=== PATIENT | female | born 1975 | race Caucasian/White ===

== ENCOUNTER → 2019-07-22 07:06 | Outpatient (CLI) | payer BC, SELFPAY ==
--- NOTE | ~2019-07-22 | MM_ITS ---
EXAMINATION: MM screening [facility] BI w majo HISTORY: Screening mammogram TECHNIQUE: Craniocaudal and mediolateral oblique 3-D tomosynthesis images were obtained and synthetic 2-D images were generated. CAD analysis was submitted and interpreted. COMPARISON: 03/26/2018 BREAST PARENCHYMAL COMPOSITION: There are scattered areas of fibroglandular density. FINDINGS: There is no evidence of suspicious mass, calcification, or architectural distortion to sugg est malignancy in either breast. There has been no suspicious interval change. IMPRESSION: 1. No mammographic evidence of malignancy. 2. Recommend routine screening mammography in one year. BI-RADS Category 1: Negative Reviewed, dictated and finalized at location A. [employer]
== END ==
PROVIDERS: Visit Provider Obstetrics & Gynecology
DX: Z12.31 Encounter for screening mammogram for malignant neoplasm of breast (principal)
CPT/HCPCS: 77063; 77067

== ENCOUNTER 2021-12-09 02:29 | Emergency (ER) | payer BC, SELFPAY ==
[2021-12-09] VITALS (27 sets, daily range): BP systolic 94–139; BP diastolic 57–100; PULSE 43–90; RESP 16–21; TEMP 36.6; O2SAT 93–100
--- NOTE | ~2021-12-09 | CT_ITS ---
EXAMINATION: CT abdomen pelvis wo con DATE: 12/09/2021 03:18 INDICATION: Right flank pain. Nausea and vomiting. TECHNIQUE: Computed tomography (CT) of the abdomen and pelvis was performed without intravenous contr ast. Automated exposure control and iterative reconstruction technique were employed. The dose-length product was 1026.56 mGy-cm. COMPARISON: None. FINDINGS: The visualized portions of the lung bases demonstrate mild atelectasis. No pleural effusion . The heart size is normal. No pericardial effusion. The liver and spleen are normal. The gallbladder is distended with adjacent fat stranding, consistent with acute cholecystitis. The pancreas, adrenal glands, and kidneys are normal. There is no urolithiasis. There are no dilated loops of bowel. The a ppendix is normal. There are no pathologically enlarged lymph nodes. There is no free intraperitoneal fluid. There is mild thoracolumbar spondylosis. IMPRESSION: 1. Acute cholecystitis. Reviewed, dictated and finalized at location A. IMPRESSION: 1. Acute cholecystitis.
--- NOTE | ~2021-12-09 | US_ITS ---
EXAMINATION: US right upper quadrant DATE: 12/09/2021 07:46 INDICATION: Abdominal pain. TECHNIQUE: Multiple grayscale and Doppler ultrasound images of the abdomen were obtained. COMPARISON: CT abdomen and pelvis 12/09/2021 FINDINGS: The visualized portions of the head and body of the pancreas are normal. The liver is jeremiah l without focal lesion. There is normal flow in main portal vein. The gallbladder is normal in size a nd contains a gallstone and sludge. No definite gallstone. Gallbladder wall thickening is noted. Ther e was a positive sonographic Parker sign. The common duct is normal and measures 7 mm. IMPRESSION: 1. Gallstone, gallbladder wall thickening, and positive sonographic Parker sign, consistent with acut e cholecystitis. 2. Mildly dilated common duct. Reviewed, dictated and finalized at location A. IMPRESSION: 1. Gallstone, gallbladder wall thickening, and positive sonographic Parker sign , consistent with acute cholecystitis. 2. Mildly dilated common duct.
--- NOTE | 2021-12-09 03:02 | ED.BACK ---
HPI - Back Pain/Injury General Chief Complaint: Back Pain/Injury <Varun Joshi MD - Last Filed: 12/09/21 19:00> Stated Complaint: right back/flank pain <Varun Joshi MD - Last Filed: 12/09/21 19:00> Time Seen by Provider: 12/09/21 02:39 <Varun Joshi MD - Last Filed: 12/09/21 19:00> Source: patient <Varun Joshi MD - Last Filed: 12/09/21 19:00> History of Present Illness HPI Narrative: Patient reports with right-sided back pain. Patient ports she was laying down in bed when she had sudden onset of sharp pain in her right back that radiates down to her groin. There are no clear aggravating or alleviating factors. She has not previously had symptoms like this. Reports her pain got so intense that she had an episode of vomiting. She denies prior abdominal surgeries history of stones or kidney disease. Denies any dysuria or hematuria denies any diarrhea or known sick contacts denies any fevers. <Varun Joshi MD - Last Filed: 12/09/21 19:00> Related Data Allergies/Adverse Reactions: Allergies Allergy/AdvReac Type Severity Reaction Status Date / Time No Known Allergies Allergy Mild Verified 12/09/21 13:45 <Varun Joshi MD - Last Filed: 12/09/21 19:00> Review of Systems Review of Systems: CONSTITUTIONAL: Denies fever, chills, or sweats. EYES: Denies visual changes, redness, or discharge. ENT: Denies rhinorrhea, congestion, sore throat, or otalgia. CARDIOVASCULAR: Denies chest pain, palpitations, or edema. RESPIRATORY: Denies cough or dyspnea. GASTROINTESTINAL: Denies diarrhea. GENITOURINARY: Denies dysuria or hematuria. SKIN: Denies rash or itching. MUSCULOSKELETAL: Denies joint pain, or myalgia. NEUROLOGIC: Denies headache, numbness, dizziness, or weakness. PSYCHIATRIC: Denies anxiety or depression. <Varun Joshi MD - Last Filed: 12/09/21 19:00> All systems reviewed & are unremarkable except as noted in HPI and below <Varun Joshi MD - Last Filed: 07/11/22 19:00> [facility] Past Medical History Medical History: Medical History (Updated 12/09/21 @ 08:26 by Junito Amezcua DO) Patient denies significant medical history <Varun Joshi MD - Last Filed: 12/09/21 19:00> Surgical History Surgical History: Surgical History History of surgery on lower extremity repair of broken left leg History of tonsillectomy <Varun Joshi MD - Last Filed: 12/09/21 19:00> Family History Family History: Family History Father Hypertension Mother Carcinoma of colon <Varun Joshi MD - Last Filed: 12/09/21 19:00> Social History Social History: Social History Smoking status: Never smoker Alcohol intake: current Living arrangements: with family Occupation/Education: occupation 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 I reexamined the patient. Patient reports she is feeling much improved and is near complete resolution of her pain. Palpated the right upper quadrant patient was without pain she has a negative Parker's. Discussed imaging findings with the patient. We will order an ultrasound for further evaluation. <Varun Joshi MD - Last Filed: 12/09/21 19:00> Date: 12/09/21 <Varun Joshi MD - Last Filed: 12/09/21 19:00> Time: 06:45 <Varun Joshi MD - Last Filed: 12/09/21 19:00> Consultations Consultation #1: Patient signed out to Dr. Amezcua pending ultrasound imaging.Patient being appropriate for outpatient evaluation. Clinical picture is more suggestive of a ureteral stone however imaging not suggestive reviewed abdominal exam is not suggestive o
[2021-12-09 03:08] LABS: Basophils Absolute Auto 0.1 K/mm3 (0.0-0.1); Basophils Percent Auto 1.2 % (0.2-1.2); Eosinophils Absolute Auto 0.4 K/mm3 (0-0.3); Eosinophils Percent Auto 4.7 % (0-4.4); Hematocrit 35.8 % (37.0-47.0); Hemoglobin 12.3 g/dL (12.0-15.0); Immature Granulocyte Absolute 0.02 K/mm3 (0.00-0.031); Immature Granulocyte Percent A 0.3 % (0-0.5); Lymphocytes Absolute Auto 3.09 K/mm3 (0.9-3.2); Lymphocytes Percent Auto 41.4 % (18.3-44.2); Mean Corpuscular HGB Conc 34.4 g/dl (32-36); Mean Corpuscular Hemoglobin 30.8 pg (26-34); Mean Corpuscular Volume 89.7 fl (80-100); Mean Platelet Volume 11.8 fl (7.4-10.4); Monocytes Absolute Auto 0.5 K/mm3 (0.1-0.6); Monocytes Percent Auto 6.3 % (2.6-8.5); Neutrophils Absolute Auto 3.5 K/mm3 (1.3-6.7); Neutrophils Percent Auto 46.1 % (45.5-73.1); Platelet Count Result 215 k/mm3 (150-375); Red Blood Count 3.99 M/mm3 (4.2-5.4); Red Cell Distribution Width 12.6 % (11.5-14.5); White Blood Count 7.5 K/mm3 (4.5-10.0)
[2021-12-09] MEDS: MORPHINE SULFATE (*CRX) 4 MG/ML INJ IV PUSH (03:11)
[2021-12-09 03:18] LABS: Appearance Urine Clear (Clear); Bilirubin Urine Negative (Negative); Blood Urine Negative (Negative); Color Urine Yellow (Yellow); Glucose Urine UA Negative (Negative); Ketones Urine Negative (Negative); Leukocyte Esterase Ur Negative LEU/UL (Negative); Nitrate Urine Negative (Negative); Protein Urine Negative (Negative); Specific Grav Ur 1.025 (1.001-1.035); Urobilinogen Urine 0.2 mg/dL (<2.0)
[2021-12-09 03:21] LABS: Mucus Urine Rare /lpf; Squamous Epithelial Cell Urine Moderate /hpf (Few); WBC Urine 0-3 /hpf
[2021-12-09 03:22] LABS: Add Urine Microscopic? YES; Alanine Aminotransferase 16 U/L (6-35); Albumin Level 4.2 g/dL (3.5-5.1); Alkaline Phosphatase 68 U/L (38-126); Anion Gap 5 mmol/L (8-16); Aspartate Amino Transferase 23 U/L (14-36); Bilirubin,Total 0.2 mg/dL (0.2-1.3); Blood Urea Nitrogen 16 mg/dL (7-17); Calcium 8.8 mg/dL (8.4-10.2); Carbon Dioxide 27 mmol/L (22-30); Chloride 104 mmol/L (98-107); Estimated CRCL calculation 92 ml/min; Estimated Glomerular Filt Rate > 60; Glucose 118 mg/dL (65-110); Lipase 132 U/L (23-300); Potassium 3.5 mmol/L (3.4-5.0); Sodium 136 mmol/L (137-145)
[2021-12-09] MEDS: ONDANSETRON INJ 4 MG/2 ML VIAL IV PUSH (03:35)
== END 2021-12-09 08:34 | disposition home or self-care (01) ==
PROVIDERS: Emergency Medicine; Emergency Provider Emergency Medicine; PCP Physician Assistant
DX: K80.20 Calculus of gallbladder without cholecystitis without obstruction (principal)
CPT/HCPCS: 36415; 74176; 76705; 80053; 81001; 81025; 83690; 85025; 96374; 96375; 99284; J2270; J2405

== ENCOUNTER 2021-12-30 10:18 | Outpatient (CLI) | payer BC, SELFPAY ==
[2021-12-30 11:03] LABS: Alanine Aminotransferase 26 U/L (6-35); Albumin Level 4.1 g/dL (3.5-5.1); Alkaline Phosphatase 72 U/L (38-126); Amylase 66 U/L (30-110); Aspartate Amino Transferase 20 U/L (14-36); Bilirubin,Total 0.4 mg/dL (0.2-1.3); Lipase 59 U/L (23-300)
== END 2021-12-30 10:19 | disposition home or self-care (01) ==
LOC: ANHSURGERY 10:23
PROVIDERS: PCP Physician Assistant; Visit Provider Surgery
DX: K80.10 Calculus of gallbladder with chronic cholecystitis without obstruction (principal); Z01.818 Encounter for other preprocedural examination
CPT/HCPCS: 36415; 80076; 82150; 83690; 86850; 86900; 86901

== ENCOUNTER 2022-01-01 01:42 | Day surgery (SDC) | payer BC, SELFPAY ==
[2021-12-25 15:26] VITALS: BMI 30.4
--- NOTE | 2021-12-25 15:35 | PC.NURSE ---
Report to the Outpatient Waiting Room, entrance under the green pavilion located off [facility], at time 0600 on date 01/01/2022. OR Time: 0730. - You and your visitor will be asked a series of questions to screen for COVID 19 for your protection. - Only one visitor is allowed at this time. - The patient visitor is requested to leave or wait in car when not with patient. - A mask is required within the hospital. Patients may have clear liquids (water, carbonated beverages, clear teas, apple juice) until 3 hours prior to surgery with a maximum of 20 ounces. - No food from midnight until time of surgery. Take the following medications with a SIP of water the morning of surgery: N/A Medications to discontinue per physician N/A Date to take last dose N/A Please no make-up, nail swedish, hairspray, perfume, deodorant, or body powder the day of surgery. No jewelry (including any body piercings) or valuables the day of surgery, leave them at home. Please take a shower the morning of, surgery with an antibacterial soap (Hibiclens) . Wear comfortable, loose fitting clothing. - Jewelry must be removed prior to entering the operating room. Rings and piercings that are not removed may be cut off. - The hospital will not accept responsibility for valuables. - Please leave all valuables, including medications, at home the day of surgery. If you are going home after surgery, a licensed tractor sweeper driver must drive you home. - NO public transportation without another adult. - We recommend that an adult stay with you for 24 hours following discharge. - We also recommend that you do not drive, make important decision, drink alcoholic beverages, or take any drugs that were not prescribed by your health care provider for at least 24 hours after your discharge time. Follow any additional instructions given to you from your surgeon. If you or anyone in your household have experienced Covid symptoms in the past week, please notify your surgeon or the nurse liaison at the phone number below for possible testing. Telephone instructions given to patient and asked if any additional questions and then verbalized understanding. Patient advised to call surgeon office or pre surgery nurse liaison [phone] if any additional questions.
[2022-01-01] VITALS (12 sets, daily range): BP systolic 100–118; BP diastolic 60–81; PULSE 50–67; RESP 12–20; TEMP 36.4; O2SAT 96–100
[2022-01-01] MEDS: ACETAMINOPHEN 500 MG TABLET 1000 MG PO (06:35)
[2022-01-01] MEDS: LACTATED RINGERS 1,000 ML 30 ML IV CONT ×2 (06:45→09:27)
[2022-01-01] MEDS: KETOROLAC 15 MG/ML VIAL (*BKC) IV PUSH (06:47)
--- NOTE | 2022-01-01 07:00 | P.PNAN_ITS ---
Anes - Initial Pre Proc Eval Procedure: Operation Date: 01/01/22 07:30 Proposed Procedures p Laparoscopic Cholecystectomy - Alexandre Thakur MD Date/Time: 01/01/22 07:00 Surgeon: Alexandre Thakur MD Pre Op Diagnosis: Chronic Cholecystitis with Cholelithiasis Patient Data Age: 46 Gender: F Height: 1.73 m Weight: 90.72 kg Allergies Allergy/AdvReac Type Severity Reaction Status Date / Time egg Allergy Severe Difficulty Verified 01/01/22 06:19 Breathing tree nut Allergy Severe Difficulty Verified 01/01/22 06:19 Breathing Home Medications Medication Instructions Recorded Confirmed Type No Home Medications 12/25/21 01/01/22 History Patient hx anesthesia problems: none Family hx anesthesia problems: none Results Review: All pre-operative results and documents have been reviewed as part of the pre- operative evaluation. 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 Informed Consent: The patient's anesthetic plan and its attendant risks and benefits were discussed with the patient/family/POA. Questions were solicited and answers provided to the satisfaction of the patient/family/POA.
--- NOTE | 2022-01-01 07:07 | WPDHPUPDATE1 ---
History and Physical Update Update Date/Time: 01/01/22 07:07 History and Physical has been reviewed, including an updated exam of the patient. There are NO changes in the patient's condition. Risks, benefits, and alternatives have been discussed and questions answered. Patient agrees to proceed with procedure.
[2022-01-01] MEDS: ceFAZolin 2 GM/D5W 50 ML 2 GM/50 ML BAG IVPB (07:24)
[2022-01-01] MEDS: BUPIVACAINE/EPINEPHRINE 0.25% 50 ML VIAL INFILTRATE (07:51)
--- NOTE | 2022-01-01 08:15 | P.OP_ITS ---
Procedure Note - Detailed Date of Procedure 01/01/22 Pre-op Diagnosis Chronic Cholecystitis with Cholelithiasis Post-op Diagnosis Same Procedure Performed Laparoscopic cholecystectomy Surgeon Alexandre Thakur MD Artificial Foliage Arranger Erin JIMÉNEZA Anesthesia General and Local (0.25% Marcaine with epinephrine) Indications Patient has complaints of right upper quadrant postprandial abdominal pain. Imaging showed gallstones. She is taken to surgery now for laparoscopic cholecystectomy. Findings Mild chronic inflammation, gallstones, no biliary ductal dilatation, no liver abnormalities. Description of Procedure The patient was taken to surgery and induced into general anesthesia. The abdomen was prepped and draped. Trocars were placed in the usual fashion using local anesthetic and applied Medical optical trocars. A 5 mm camera was used. The gallbladder was freed from adhesions. A laparoscopic aspirator was used to decompress the gallbladder. The cholecystotomy was closed with a Vicryl endoloop. The gallbladder was then retracted anterosuperiorly. Dissection was carried out in the cholecystohepatic triangle. The cystic duct and cystic artery were dissected out clearly. Gallbladder was dissected off the liver its lower 3rd. Critical view was achieved. We then securely clipped and divided the cystic duct and cystic artery. The gallbladder was then dissected free of its remaining attachments to the liver. Once freed, it was placed in an Endo- Catch bag retrieved through the 10 11 epigastric trocar site. We replaced the epigastric trocar and then reviewed the right upper quadrant. Some additional cautery as well as irrigation was carried out. We reach checked the area a couple of different times in all looked good with no evidence of bleeding or bile leak. We then evacuated CO2 and removed the trocar sleeves. Skin wounds were closed with subcuticular 4-0 Monocryl skin suture. The wounds were dressed with Exofin surgical adhesive. Patient was awakened and taken to recovery in good condition. Sponge needle counts were correct x2. Estimated Blood Loss -10 Drains No Packing No Pathology Yes (Gallbladder) Complications No immediate complications Condition Stable Disposition PACU [facility] Billing Surgery - Charge Forward: Surgery Billing (Laparoscopic cholecystectomy)
[2022-01-01] MEDS: fentaNYL CITRATE INJ (*CRX) 100 MCG/2 ML VIAL 25 MCG IV PUSH ×2 (08:47→09:27)
[2022-01-01] MEDS: ONDANSETRON INJ 4 MG/2 ML VIAL IV PUSH (09:10)
[2022-01-01] MEDS: oxyCODONE HCL (*CRX) 5 MG TAB IR PO (09:27)
[2022-01-01] MEDS: SCOPOLAMINE 1.5 MG PATCH TRANSDERM (10:29)
[2022-01-01] MEDS: HALOPERIDOL LACTATE 5 MG/ML VIAL 1 MG IV PUSH (10:33)
== END 2022-01-01 11:24 | disposition home or self-care (01) ==
PROVIDERS: PCP Physician Assistant; Visit Provider Surgery
PROC: 0FT44ZZ Resection of Gallbladder, Percutaneous Endoscopic Approach (ICD-10-PCS; CPT 47562; principal; 2022-01-01 07:30)
DX: K80.10 Calculus of gallbladder with chronic cholecystitis without obstruction (principal); E66.9 Obesity, unspecified; Z68.31 Body mass index [BMI] 31.0-31.9, adult
CPT/HCPCS: 47562; 88304; A9270; C1713; J0330; J0461; J0690; J1100; J1170; J1630; J1885; J2250; J2370; J2405; J2704; J2710; J3010; J7120

== ENCOUNTER → 2022-10-23 13:59 | Outpatient (CLI) | payer BC, SELFPAY ==
--- NOTE | ~2022-10-23 | MM_ITS ---
EXAMINATION: MM screening [facility] BI w majo HISTORY: Screening mammogram TECHNIQUE: Craniocaudal and mediolateral oblique 3-D tomosynthesis images were obtained and synthetic 2-D images were generated. CAD analysis was submitted and interpreted. COMPARISON: 07/22/2019, 03/26/2018 BREAST PARENCHYMAL COMPOSITION: There are scattered areas of fibroglandular density. FINDINGS: No suspicious mass, calcification, or architectural distortion are identified in either cecilia ast to suggest malignancy. There has been no suspicious interval change. IMPRESSION: 1. No mammographic evidence of malignancy. 2. Recommend routine screening mammography in one year. BI-RADS Category 1: Negative Reviewed, dictated and finalized at location A.
== END ==
PROVIDERS: PCP Obstetrics & Gynecology; Visit Provider Obstetrics & Gynecology
DX: Z12.31 Encounter for screening mammogram for malignant neoplasm of breast (principal)
CPT/HCPCS: 77063; 77067

== ENCOUNTER 2023-10-13 07:20 | Day surgery (SDC) | payer OTHER, SELFPAY ==
[2023-09-14 12:19] VITALS: BMI 32.8
[2023-09-29 09:38] VITALS: BMI 30.4
--- NOTE | 2023-10-09 08:35 | PM.HPGS ---
History of Present Illness History of Present Illness Consent: Risks, benefits, and alternatives have been discussed and questions answered. Patient agrees to proceed with procedure. Chief complaint: Neoplasm screening Narrative: Raisa Jamison is a 48 year old female who is referred for colon cancer screening. Her mother had colon cancer. Review of Systems Review of Systems: All systems reviewed & are unremarkable except as noted in HPI and below PMFSH Past Medical History Medical History Patient denies significant medical history Screening mammogram, encounter for Surgical History Surgical History History of surgery on lower extremity repair of broken left leg History of tonsillectomy Hx laparoscopic cholecystectomy 01/01/2022 Family History Family History Father Hypertension Mother Carcinoma of colon Social History Social History Smoking status: Never smoker Second hand tobacco smoke exposure: No Alcohol intake: current Drinks per week: 2 Alcohol use details: 2 month Substance use: never Substance use type: does not use Living arrangements: with family Additional living arrangements comments: Occupation/Education: occupation 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 Gender identity (if verbalized by the patient): Female Sexual Orientation (if Verbalized by the Patient): Straight or Heterosexual Spiritual care concerns: No Meds Home Medications and Allergies Home Medications Medication Instructions Recorded Confirmed Type tirzepatide (weight loss) 2.5 2.5 mg subcut WEEKLY 08/19/23 10/13/23 History mg/0.5 mL subcutaneous pen injector (Zepbound) Allergies Allergy/AdvReac Type Severity Reaction Status Date / Time egg Allergy Severe Difficulty Verified 10/13/23 08:17 Breathing tree nut Allergy Severe Difficulty Verified 10/13/23 08:17 Breathing peanut Allergy Difficulty Verified 10/13/23 08:17 Breathing Exam Resp: Auscultation: clear to auscultation bilaterally Cardio: Rate: regular rate Rhythm: regular rhythm GI: GI Palp: Yes Soft to palpation and No Tenderness to palpation present (GI) Assessment and Plan Assessment and plan (1) Colon cancer screening: Code(s): Z12.11 - Encounter for screening for malignant neoplasm of colon Status: Acute Assessment and Plan: Colonoscopy with possible biopsy or polypectomy or cautery or injection of substances.
--- NOTE | 2023-10-13 08:22 | P.PNAN_ITS ---
Anes - Initial Pre Proc Eval Procedure: Operation Date: 10/13/23 09:30 Proposed Procedures p Screening Colonoscopy - Fede Gan MD Date/Time: 10/13/23 08:22 Surgeon: Fede Gan MD Pre Op Diagnosis: Neoplasm screening Patient Data Age: 48 Gender: F Height: 1.73 m Weight: 90.8 kg Allergies Allergy/AdvReac Type Severity Reaction Status Date / Time egg Allergy Severe Difficulty Verified 10/13/23 08:17 Breathing tree nut Allergy Severe Difficulty Verified 10/13/23 08:17 Breathing peanut Allergy Difficulty Verified 10/13/23 08:17 Breathing Home Medications Medication Instructions Recorded Confirmed Type tirzepatide (weight loss) 2.5 2.5 mg subcut WEEKLY 08/19/23 10/13/23 History mg/0.5 mL subcutaneous pen injector (Zepbound) Patient hx anesthesia problems: none Family hx anesthesia problems: none Results Review: All pre-operative results and documents have been reviewed as part of the pre- operative evaluation. [facility] Past Medical History Medical History Patient denies significant medical history Screening mammogram, encounter for Surgical History Surgical History History of surgery on lower extremity repair of broken left leg History of tonsillectomy Hx laparoscopic cholecystectomy 01/01/2022 Family History Family History Father Hypertension Mother Carcinoma of colon Social History Social History Smoking status: Never smoker Second hand tobacco smoke exposure: No Alcohol intake: current Drinks per week: 2 Alcohol use details: 2 month Substance use: never Substance use type: does not use Living arrangements: with family Additional living arrangements comments: Occupation/Education: occupation 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 Gender identity (if verbalized by the patient): Female Sexual Orientation (if Verbalized by the Patient): Straight or Heterosexual Spiritual care concerns: No Anes - Eval Final PreProcedure Day of Procedure 10/13/23 08:22 Patient weight: overweight Heart: regular rate and rhythm Lungs: clear to auscultation Airway: Mallampati scale class II Neurological: alert and oriented Last oral intake: >/= 8 hours ASA classification: II Emergent: no Anesthetic plan: proceed Anesthesia type and monitoring: general GIVS and standard monitoring Results Review: All pre-operative results and documents have been reviewed as part of the pre-operative evaluation. Informed Consent: The patient's anesthetic plan and its attendant risks and benefits were discussed with the patient/family/POA. Questions were solicited and answers provided to the satisfaction of the patient/family/POA.
[2023-10-13 08:24] VITALS: BMI 30.8
[2023-10-13 08:25] VITALS: BP 118/94; PULSE 90; RESP 16; TEMP 36.6; O2SAT 100
[2023-10-13] MEDS: LACTATED RINGERS 1,000 ML 150 ML IV CONT (08:46)
[2023-10-13] MEDS: SIMETHICONE ORAL SUSPENSION 20 MG/0.3 ML 30 ML BOTTLE 0.6 ML IRRIGATION (09:56)
[2023-10-13 10:13] VITALS: BP 110/75; PULSE 75; RESP 15; O2SAT 99
--- NOTE | 2023-10-13 10:33 | WPDANESPN ---
Anes - Prog Note Post-Op Date/Time: 10/13/23 10:33 Cardiovascular status: normal Respiratory status: normal Airway patency: baseline Mental status: baseline Post-Op hydration status: normal Vital Signs: Last Vital Signs Temp 36.6 C 10/13/23 08:25 Pulse 75 10/13/23 10:13 Resp 15 10/13/23 10:13 BP 110/75 10/13/23 10:13 Pulse Ox 99 10/13/23 10:13 O2 Del Method Room Air 10/13/23 10:13 Pain Score (VAS): 0 I/O: Intake & Output 10/12/23 10/13/23 10/13/23 23:59 07:59 15:59 Intake Total 400 Balance 400 Patient Feedback: Patient satisfied with anesthetic care.
== END 2023-10-13 10:41 | disposition home or self-care (01) ==
PROVIDERS: PCP Emergency Medicine; Visit Provider Internal Medicine Gastroenterology
PROC: 0DJD8ZZ Inspection of Lower Intestinal Tract, Via Natural or Artificial Opening Endoscopic (ICD-10-PCS; CPT 45378; principal; 2023-10-13 09:30)
DX: Z12.11 Encounter for screening for malignant neoplasm of colon (principal); Z80.0 Family history of malignant neoplasm of digestive organs
CPT/HCPCS: 45378

== ENCOUNTER 2023-12-23 12:34 | Outpatient (CLI) | payer OTHER, SELFPAY ==
--- NOTE | ~2023-12-23 | MM_ITS ---
EXAMINATION: MM screening [facility] BI w majo HISTORY: Screening TECHNIQUE: Craniocaudal and mediolateral oblique 3-D tomosynthesis images were obtained and synthetic 2-D images were generated. CAD analysis was submitted and interpreted. COMPARISON: No prior mammogram is available for comparison at this institution. BREAST PARENCHYMAL COMPOSITION: Not dense: There are scattered areas of fibroglandular density. FINDINGS: There is a focal asymmetry inferiorly and posteriorly in the right breast on MLO view, inco mpletely visualized. The left breast is stable without evidence for malignancy. IMPRESSION: 1. Right breast asymmetry seen on MLO view only. 2. Additional mammographic views and possible breast ultrasound are recommended. BI-RADS Category 0: Incomplete: Needs additional imaging evaluation. Reviewed, dictated and finalized at location B. IMPRESSION: 1. Right breast asymmetry seen on MLO view only. 2. Additional mammographic views and possible breast ultrasound are recommended . BI-RADS Category 0: Incomplete: Needs additional imaging evaluation.
== END 2023-12-23 12:35 ==
LOC: MICIMG 12:35
PROVIDERS: PCP Emergency Medicine; Visit Provider Obstetrics & Gynecology
DX: Z12.31 Encounter for screening mammogram for malignant neoplasm of breast (principal); R92.8 Other abnormal and inconclusive findings on diagnostic imaging of breast
CPT/HCPCS: 77063; 77067

== ENCOUNTER 2024-01-20 08:15 | Outpatient (CLI) | payer OTHER, SELFPAY ==
--- NOTE | ~2024-01-20 | MMUS_ITS ---
EXAMINATION: MM diagnostic [facility] RT w majo, US breast RT limited HISTORY: Follow-up right breast asymmetry TECHNIQUE: Additional 3-D tomosynthesis images of the right breast were performed and synthetic 2-D i mages were generated. CAD analysis was submitted and interpreted. High resolution Limited right breas t ultrasound was performed. COMPARISON: Comparison to multiple prior studies sequentially, with oldest reviewed study dated 03/02. BREAST PARENCHYMAL COMPOSITION: Not dense: There are scattered areas of fibroglandular density. FINDINGS: MAMMOGRAPHIC FINDINGS: There is a persistent asymmetry inferiorly and posteriorly on spot MLO view located medially. There i s central lucency and circumscribed margins, likely benign. ULTRASOUND: Limited right breast ultrasound: At 3:00, 8 cm from the nipple there is an oval hyperechoic encapsula lizbet 11 mm mass located superficially. No posterior features. There is marginal vascularity. At 5:00, 5 cm from the nipple, there is a small cluster of cysts, likely cluster of benign microcysts measurin g 6 mm in aggregate. IMPRESSION: 1. Probable benign findings of the right breast. 2. Recommend 6 month follow-up diagnostic right mammogram and Limited right breast ultrasound BI-RADS category 3, probably benign findings. Reviewed, dictated and finalized at location B. IMPRESSION: 1. Probable benign findings of the right breast. 2. Recommend 6 month follow-up diagnostic right mammogram and Limited right cecilia ast ultrasound BI-RADS category 3, probably benign findings.
== END 2024-01-20 08:16 ==
LOC: MICIMG 08:17
PROVIDERS: PCP Obstetrics & Gynecology; Visit Provider Obstetrics & Gynecology
DX: N64.89 Other specified disorders of breast (principal); R92.8 Other abnormal and inconclusive findings on diagnostic imaging of breast
CPT/HCPCS: 76642; 77061; 77065; G0279

== ENCOUNTER 2024-07-22 08:02 | Outpatient (CLI) | payer OTHER, SELFPAY ==
--- NOTE | ~2024-07-22 | MMUS_ITS ---
EXAMINATION: MM diagnostic salvador RT w majo, US breast RT complete HISTORY: Follow-up right breast mass TECHNIQUE: Additional 3-D tomosynthesis images of the right breast were performed and synthetic 2-D i mages were generated. CAD analysis was submitted and interpreted. High resolution complete right deidra st ultrasound was performed. COMPARISON: Comparison to multiple prior studies sequentially, with oldest reviewed study dated 03/02. BREAST PARENCHYMAL COMPOSITION: Not dense: There are scattered areas of fibroglandular density. FINDINGS: MAMMOGRAPHIC FINDINGS: Focal right breast asymmetry inferiorly is unchanged from prior examination. There are no suspicious calcifications or architectural distortion. ULTRASOUND: Complete US of all 4 quadrants of the right breast/s and retroareolar region was reviewed. The previo usly identified oval hyperechoic mass is not visualized on the current study. At 5:00, 5 cm from the nipple there is a 5 mm cyst. No suspicious sonographic abnormalities to suggest malignancy. IMPRESSION: 1. No evidence for malignancy in the right breast. 2. Routine yearly screening mammogram and regular clinical breast examination are recommended. BI-RADS Category 2: Benign finding(s). Reviewed, dictated and finalized at location L. [facility] [employer] IMPRESSION: 1. No evidence for malignancy in the right breast. 2. Routine yearly screening mammogram and regular clinical breast examination a re recommended. BI-RADS Category 2: Benign finding(s).
== END 2024-07-22 08:03 | disposition home or self-care (01) ==
LOC: MICIMG 08:02
PROVIDERS: PCP Obstetrics & Gynecology; Visit Provider Obstetrics & Gynecology
DX: N64.89 Other specified disorders of breast (principal)
CPT/HCPCS: 76641; 77061; 77065; G0279